=== PATIENT | male | born 1985 | race Two or more races ===

== ENCOUNTER 2017-12-28 17:42 | Emergency (ER) | payer OTHER ==
[2017-12-28 17:55] VITALS: BP 133/74
--- NOTE | 2017-12-28 20:14 | ED Physician Documentation ---
PD HPI SKIN - Stated complaint Stated Complaint: WOUND ON RT ARM - Chief complaint Chief Complaint: Ext Problem - History obtained from History obtained from: Patient - History of Present Illness Timing - onset: How many days ago (few) Timing - duration: Days (few) Timing - details: Gradual onset, Still present Location: RUE (forearm) Quality / character: Painful, Raised. No: Vesicular, Draining Review of Systems Constitutional: denies: Fever, Chills Skin: reports: Lesions (right forearm) PD PAST MEDICAL HISTORY - Past Medical History Past Medical History: No - Past Surgical History Past Surgical History: Yes - Present Medications Home Medications: Ambulatory Orders Medication Instructions Recorded Confirmed Chlorhexidine Gluconate [Hibiclens] 10 ml TP DAILY #473 ml 12/28/17 Mupirocin 1 applic TP TID #15 oint...g. 12/28/17 Sulfamethox/Trimeth 800/160 1 each PO BID #14 tablet 12/28/17 [Bactrim Ds 800/160] - Allergies Allergies/Adverse Reactions: Allergies Allergy/AdvReac Type Severity Reaction Status Date / Time No Known Drug Allergies Allergy Verified 12/28/17 17:55 - Social History Does the pt smoke?: No Smoking Status: Never smoker - Immunizations Immunizations are current?: Yes PD ED PE NORMAL - Vitals Vital signs reviewed: Yes - General General: Alert and oriented X 3, No acute distress, Well developed/nourished - Neck Neck: Supple, no meningeal sign, No adenopathy - Cardiac Cardiac: RRR, No murmur - Respiratory Respiratory: Clear bilaterally - Derm Derm: Normal color, Warm and dry - Extremities Extremities: Other (right forearm with 4 discrete small raised tender bumps without vesicles, but have base redness. Some induration but no fluid collection by bedside U/S. Appears c/w staph. Has tatoo with coloring in the area and he says tatoo coloring is just about 3 weeks old. ) Results - Vitals Vitals: Oxygen O2 Source Room air PD MEDICAL DECISION MAKING - ED course Complexity details: considered differential (superficial lesions c/w small skin infections in sites of recent tatoo (2-3 weeks ago). No fluid collection by bedside U/S. ), d/w patient Departure - Departure Disposition: 01 Home, Self Care Clinical Impression: Infected forearm, Staph skin infection Condition: Stable Record reviewed to determine appropriate education?: Yes Instructions: ED Staph Infec Abx Tx Only Follow-Up: JUAN Mancini [Provider Group] Prescriptions: Chlorhexidine Gluconate [Hibiclens] 10 ml TP DAILY #473 ml Mupirocin 1 applic TP TID #15 oint...g. Sulfamethox/Trimeth 800/160 [Bactrim Ds 800/160] 1 each PO BID #14 tablet Comments: Cleanse the area with soap and water and apply mupirocin ointment to the small infections. Do this to 3 times a day. Bactrim twice daily oral antibiotic to get at it from the inside as well. Use the chlorhexidine antiseptic wash in the shower on the whole body to reduce germ load over the rest of your skin and try to prevent satellite lesions. Recheck if not better over the next few days. Discharge Date/Time: 12/28/17 20:43
[2017-12-28] MEDS ORDERED: SULFAMETH/TRIMETH DS 800/160 MG TABLET PO STA (20:29)
[2017-12-28] MEDS ORDERED: MUPIROCIN 2% OINT 1 GM TOP STA (20:29)
== END 2017-12-28 20:43 | disposition home or self-care (01) ==
LOC: ED 17:42
DX: L08.89 Other specified local infections of the skin and subcutaneous tissue (principal); B95.8 Unspecified staphylococcus as the cause of diseases classified elsewhere
CPT/HCPCS: 99283; A9270

== ENCOUNTER 2018-06-07 07:31 | Emergency (ER) | payer OTHER ==
--- NOTE | 2018-06-07 07:48 | ED Physician Documentation ---
PD HPI BACK INJURY - Stated complaint Stated Complaint: BACK INJURY/PX - History obtained from History obtained from: Patient - History of Present Illness Location: Left, Lower Type of injury: Other (he was lifting heavy weight (exercise) yesterday and had onset of left low back pain that has persisted into today. No weakness nor numbness.) Where injury occurred: Other (at the gym, working out.) Timing - onset: Yesterday Timing - duration: Days (1) Timing - details: Abrupt onset, Still present Quality: Pain, Spasm Improved by: Rest Worsened by: Moving, Palpating Associated symptoms: No: Weakness, Numbness, Incontinent of urine Similar symptoms before: Has not had sx before Recently seen: Not recently seen Review of Systems Constitutional: denies: Fever, Chills Nose: denies: Rhinorrhea / runny nose, Congestion Throat: denies: Sore throat Cardiac: denies: Chest pain / pressure, Palpitations Respiratory: denies: Dyspnea, Cough GI: denies: Abdominal Pain, Nausea, Vomiting, Diarrhea, Bloody / black stool : denies: Frequency, Unable to Void, Incontinent Skin: denies: Rash, Lesions Neurologic: denies: Focal weakness, Numbness PD PAST MEDICAL HISTORY - Past Medical History Cardiovascular: None Respiratory: None Neuro: None Endocrine/Autoimmune: None Musculoskeletal: None - Past Surgical History Past Surgical History: Yes - Present Medications Home Medications: Ambulatory Orders Medication Instructions Recorded Confirmed Dexamethasone [Decadron] 4 mg PO DAILY #5 tablet 06/07/18 HYDROcod/ACETAM 5/325 [[place] 5/325] 1 tab PO Q6H PRN #15 tablet 06/07/18 Methocarbamol [Robaxin] 500 mg PO Q6H PRN #25 tablet 06/07/18 - Allergies Allergies/Adverse Reactions: Allergies Allergy/AdvReac Type Severity Reaction Status Date / Time No Known Drug Allergies Allergy Verified 06/07/18 07:49 - Social History Does the pt smoke?: No Smoking Status: Never smoker - Immunizations Immunizations are current?: Yes PD ED PE NORMAL - Vitals Vital signs reviewed: Yes - General General: Alert and oriented X 3, No acute distress (but does seem uncomfortable with ROM of the back; walking and moving stiffly. ), Well developed/nourished - Abdomen Abdomen: Soft, Non tender - Back Back: No CVA TTP, Other (lower lumbar area tender to palpation right side in muscles. ) - Derm Derm: Normal color, Warm and dry - Extremities Extremities: No tenderness to palpate, No edema, No calf tenderness / cord - Neuro Neuro: Alert and oriented X 3, No motor deficit, No sensory deficit, Other ( normal reflexes at knees. ) Results - Vitals Vitals: Oxygen O2 Source Room air - Rads (name of study) lumbar CT Radiology: Prelim report reviewed (no fractures nor misalignment.) PD MEDICAL DECISION MAKING - ED course Complexity details: reviewed results (no fracture nor misalignment. ), considered differential (abrupt onset of pain with heavy vertical load, so will get imaging to eval for compression fx,etc), d/w patient - Sepsis Event Vital Signs: Oxygen O2 Source Room air Departure - Departure Disposition: 01 Home, Self Care Clinical Impression: Low back strain Qualifiers: Encounter type: initial encounter Qualified Code(s): S39.012A - Strain of muscle, fascia and tendon of lower back, initial encounter Condition: Stable Record reviewed to determine appropriate education?: Yes Instructions: ED Low Back Pain Injury Prescriptions: Dexamethasone [Decadron] 4 mg PO DAILY #5 tablet HYDROcod/ACETAM 5/325 [[place] 5/325] 1 tab PO Q6H PRN #15 tablet PRN Reason: Pain Methocarbamol [Robaxin] 500 mg PO Q6H PRN #25 tablet PRN Reason: Spasms Forms: Activity restrictions Discharge Date/Time: 06/07/18 09:35
[2018-06-07 07:50] VITALS: BP 125/89
[2018-06-07] MEDS ORDERED: HYDROcod/ACETAM 5/325 MG TABLET PO STA (07:55)
[2018-06-07] MEDS ORDERED: DEXAMETHASONE 10 MG/ML VIAL PO STA (07:55)
[2018-06-07] MEDS ORDERED: METHOCARBAMOL 500 MG TABLET PO STA (07:55)
[2018-06-07] MEDS ORDERED: IBUPROFEN 600 MG TABLET PO STA (07:55)
[2018-06-07] MEDS ORDERED: CHERRY SYRUP 10 ML UDC PO ONE (08:09)
--- NOTE | 2018-06-07 09:19 | CT Report ---
Reason: abrupt pain low back with heavy lifting Procedure Date: 06/07/2018 Accession Number: [id number] / [id number] Procedure: CT - Lumbar Spine W/O CPT Code: FULL RESULT: EXAM: CT LUMBAR SPINE WITHOUT CONTRAST EXAM DATE: 06/07/2018 08:17 AM. CLINICAL HISTORY: Abrupt pain low back with heavy lifting. COMPARISONS: None. TECHNIQUE: Thin-section axial images were acquired of the lumbar spine from T12 to S1 without contrast. Post-processing: Coronal and sagittal reformats. Other: None. In accordance with CT protocol optimization, one or more of the following dose reduction techniques were utilized for this exam: automated exposure control, adjustment of mA and/or KV based on patient size, or use of iterative reconstructive technique. FINDINGS: Alignment: No scoliosis or spondylolisthesis. Bones: Five [id number] lumbar vertebral bodies are present. No acute fracture or bony lesion. Disk Levels/Facets: T12-L1: Unremarkable. L1-L2: Unremarkable. L2-L3: Unremarkable. L3-L4: Slight circumferential disk protrusion. Minimal cervical facet arthropathy. L4-L5: Circumferential disk protrusion. Effacement of anterior thecal sac. Right lateral disk slightly abuts exited right L4 nerve root. Minimal facet arthropathy. L5-S1: Mild facet arthropathy. Musculature: Normal. No fatty atrophy. Other: Visualize abdomen and retroperitoneum are unremarkable. Small fatty umbilical hernia. Lung bases are clear. IMPRESSION: 1. No acute lumbar spine abnormalities are identified. 2. Circumferential disk protrusion at L4-L5 with far lateral disk slightly abutting the right L4 nerve root. 3. Mild facet arthropathy. RADIA
== END 2018-06-07 09:35 | disposition home or self-care (01) ==
LOC: ED 07:31
DX: S39.012A Strain of muscle, fascia and tendon of lower back, initial encounter (principal); X50.0XXA Overexertion from strenuous movement or load, initial encounter; Y93.B3 Activity, free weights; Y92.39 Other specified sports and athletic area as the place of occurrence of the external cause
CPT/HCPCS: 72131; 99283; A9270

== ENCOUNTER 2018-06-23 12:19 | Emergency (ER) | payer OTHER ==
[2018-06-23 12:33] VITALS: BP 130/84
--- NOTE | 2018-06-23 13:21 | ED Physician Documentation ---
PD HPI BACK INJURY - Stated complaint Stated Complaint: BACK PX - History obtained from History obtained from: Patient - History of Present Illness Location: Lower (Earlier this month he had an injury while weightlifting. He had low back pain mostly on the left. It is CT done at the time that was normal. He got better but after fishing yesterday he had progressive low back pain that radiated like a band across the low back. Much worse with walking, getting up from a sitting position or bending over. He denies weakness, numbness, tingling of the legs or saddle area. No bowel or bladder issues or no fevers. Prior to this month he does not have a history of back pain.) Review of Systems Constitutional: denies: Fever, Chills, Myalgias Cardiac: denies: Chest pain / pressure, Palpitations Respiratory: denies: Dyspnea, Cough GI: denies: Abdominal Pain PD PAST MEDICAL HISTORY - Past Medical History Cardiovascular: None Respiratory: None Neuro: None Endocrine/Autoimmune: None Musculoskeletal: None - Past Surgical History Past Surgical History: Yes - Present Medications Home Medications: Ambulatory Orders Medication Instructions Recorded Confirmed Cyclobenzaprine [Flexeril] 10 mg PO TID PRN #20 tablet 06/23/18 Ibuprofen [Motrin] 800 mg PO Q8H PRN #30 tablet 06/23/18 - Allergies Allergies/Adverse Reactions: Allergies Allergy/AdvReac Type Severity Reaction Status Date / Time No Known Drug Allergies Allergy Verified 06/23/18 12:33 - Social History Does the pt smoke?: No Smoking Status: Never smoker - Immunizations Immunizations are current?: Yes PD ED PE NORMAL - Vitals Vital signs reviewed: Yes - General General: Alert and oriented X 3, No acute distress - Abdomen Abdomen: Normal bowel sounds, Soft, Non tender - Back Back: No spinal TTP, Other (The patient has equal and normal Achilles and patellar reflexes bilaterally. Normal sensation in all areas of the legs. Patient denies saddle anesthesia. Normal strength in flexion-extension at the ankles, knees, and flexion of the hips.) - Extremities Extremities: No edema, No calf tenderness / cord - Neuro Neuro: Alert and oriented X 3, Normal speech Results - Vitals Vitals: Vital Signs - 24 hr 06/23/18 12:29 Temperature 36.3 C L Heart Rate 59 L Respiratory 16 Rate Blood Pressure 130/84 H O2 Saturation 98 Oxygen O2 Source Room air PD MEDICAL DECISION MAKING - ED course ED course: This patient has seemingly uncomplicated musculoskeletal back pain. The patient has no "red flags." Specifically denies IV drug use, fevers, incontinence, saddle anesthesia. Spinal epidural abscess was considered, given that the patient has no fever, is not diabetic, has no spinal tenderness, does not use IV drugs, and has no bilateral neurologic symptoms, the diagnosis of spinal epidural abscess is considered exceedingly unlikely. - Sepsis Event Vital Signs: Vital Signs - 24 hr 06/23/18 12:29 Temperature 36.3 C L Heart Rate 59 L Respiratory 16 Rate Blood Pressure 130/84 H O2 Saturation 98 Oxygen O2 Source Room air Departure - Departure Disposition: Home, Self Care Clinical Impression: Low back strain Qualifiers: Encounter type: initial encounter Qualified Code(s): S39.012A - Strain of muscle, fascia and tendon of lower back, initial encounter Condition: Good Record reviewed to determine appropriate education?: Yes Instructions: ED Low Back Pain Injury Prescriptions: Cyclobenzaprine [Flexeril] 10 mg PO TID PRN #20 tablet PRN Reason: Spasms Ibuprofen [Motrin] 800 mg PO Q8H PRN #30 tablet PRN Reason: PAIN &/OR FEVER Comments: Call your doctor to arrange a follow-up appointment, make the next available appointment. In the interim, return anytime if worse or if new symptoms develop. Your blood pressure was elevated today on check into the emergency department. This does not mean that you have hypertension, it is a common phenomenon to come to the emergency department and have elevated blood pressure. I recommend that you see your primary care physician within the week to have it rechecked when you are feeling better. Forms: Activity restrictions
== END 2018-06-23 13:23 | disposition home or self-care (01) ==
LOC: ED 12:19
DX: S39.012A Strain of muscle, fascia and tendon of lower back, initial encounter (principal); X50.9XXA Other and unspecified overexertion or strenuous movements or postures, initial encounter; R03.0 Elevated blood-pressure reading, without diagnosis of hypertension
CPT/HCPCS: 99283

== ENCOUNTER 2018-07-30 21:31 | Emergency (ER) | payer OTHER ==
[2018-07-30 21:38] VITALS: BP 139/79
--- NOTE | 2018-07-30 21:49 | ED Physician Documentation ---
PD HPI BACK PAIN - Stated complaint Stated Complaint: BACK PX - Chief complaint Chief Complaint: Back Pain - History obtained from History obtained from: Patient - History of Present Illness Timing - onset: Enter time (18:00), Today Timing - details: Abrupt onset, Waxing and waning Pain level now: 8 Location: Lower, Right Quality: Pain, Spasm Associated symptoms: No: Fever, Weakness, Numbness, Incontinent of urine, Unable to urinate, Hematuria Improves with: Rest Worsened by: Movement Recently seen: Emergency Dept (T+R twice last month for back pain, although those episodes involved left-sided pain) - Additional information Additional information: c/o sudden onset right-sided low back pain 6 PM while walking at home, no injury. Distinctly worse with movement. He took a methacarbamol that was from previous ED visit for left-sided back pain; this did not provide any noticeable relief Review of Systems Constitutional: denies: Fever GI: denies: Abdominal Pain : denies: Dysuria, Frequency, Unable to Void, Incontinent, Hematuria Musculoskeletal: reports: Back pain Neurologic: denies: Focal weakness, Numbness PD PAST MEDICAL HISTORY - Past Medical History Cardiovascular: None Respiratory: None Neuro: None Endocrine/Autoimmune: None Musculoskeletal: None - Past Surgical History Past Surgical History: Yes - Present Medications Home Medications: Ambulatory Orders Medication Instructions Recorded Confirmed Cyclobenzaprine [Flexeril] 10 mg PO TID PRN #20 tablet 07/30/18 HYDROcod/ACETAM 5/325 [[place] 5/325] 1 - 2 ea PO Q6H PRN #15 tablet 07/30/18 - Allergies Allergies/Adverse Reactions: Allergies Allergy/AdvReac Type Severity Reaction Status Date / Time No Known Drug Allergies Allergy Verified 07/30/18 21:38 - Social History Does the pt smoke?: No Smoking Status: Never smoker - Immunizations Immunizations are current?: Yes PD ED PE NORMAL - Vitals Vital signs reviewed: Yes - General General: Alert and oriented X 3, No acute distress (NAD at rest but appears to be in painful discomfort with movement involving lower back), Well developed/nourished - Abdomen Abdomen: Soft, Non tender - Back Back: No CVA TTP, No spinal TTP - Derm Derm: Normal color, Warm and dry, No rash - Extremities Extremities: No edema - Neuro Neuro: Alert and oriented X 3, No motor deficit (5/5 plantarflexion bilaterally), No sensory deficit Results - Vitals Vitals: Vital Signs - 24 hr 07/30/18 21:33 Temperature 36.7 C Heart Rate 74 Respiratory 18 Rate Blood Pressure 139/79 H O2 Saturation 99 Oxygen O2 Source Room air PD MEDICAL DECISION MAKING - ED course Complexity details: considered differential, d/w patient Departure - Departure Disposition: 01 Home, Self Care Clinical Impression: Low back strain Qualifiers: Encounter type: initial encounter Qualified Code(s): S39.012A - Strain of muscle, fascia and tendon of lower back, initial encounter Condition: Good Instructions: ED Back Care Tips, ED Sprain Strain Lumbar Follow-Up: JUAN Fitchneftaly Mancini [Provider Group] - Within 3 Days Prescriptions: Cyclobenzaprine [Flexeril] 10 mg PO TID PRN #20 tablet PRN Reason: Spasms HYDROcod/ACETAM 5/325 [[place] 5/325] 1 - 2 ea PO Q6H PRN #15 tablet PRN Reason: Pain Forms: Activity restrictions Discharge Date/Time: 07/30/18 22:23
[2018-07-30] MEDS ORDERED: HYDROcod/ACETAM 5/325 MG TABLET PO STA (22:14)
[2018-07-30] MEDS ORDERED: CYCLOBENZAPRINE 10 MG TABLET PO STA (22:14)
== END 2018-07-30 22:23 | disposition home or self-care (01) ==
LOC: ED 21:31
DX: S39.012A Strain of muscle, fascia and tendon of lower back, initial encounter (principal); X58.XXXA Exposure to other specified factors, initial encounter
CPT/HCPCS: 99283; A9270